=== PATIENT | female | born 1955 ===

== ENCOUNTER 2018-05-23 08:12 | Day surgery (SDC) | payer OTHER ==
[2018-04-26 10:38] VITALS: BMI 37.2
[2018-05-23] MEDS ORDERED: Midazolam 2 MG/2 ML VIAL ONE (10:10)
[2018-05-23] MEDS ORDERED: Propofol 10 mg/ml Inj (20 ML) ONE (10:11)
--- NOTE | 2018-05-23 10:45 | PCM.SURG1 ---
Surgeon's Initial Post Op Note - Surgeon's Notes Surgeon: Dr. Dorado Parking Meter Installer: None Type of Anesthesia: General LMA Anesthesia Administered By: Dr. Tobar Pre-Operative Diagnosis: 62 yo Postmenopausal bleeding, cystocel grade III, uterine prolapse gradeII and rectocele grade II Operative Findings: Av uterus , Cystocele grade III, uterine prolapse gradeII, rectocele gradeII Post-Operative Diagnosis: Same as above Operation Performed: Hysteroscopy D and C attempted Myosure Specimen/Specimens Removed: EMC,ECC Estimated Blood Loss: EBL {In ML}: 5 Blood Products Given: N/A Drains Used: No Drains Post-Op Condition: Good Date of Surgery/Procedure: 05/23/18 Time of Surgery/Procedure: 10:46
[2018-05-23 11:58] VITALS: PULSE 63; RESP 15; TEMP 97.7
[2018-05-23 12:06] VITALS: O2SAT 98
[2018-05-23 12:50] VITALS: BP 136/75
--- NOTE | 2018-05-23 21:04 | OP ---
PROCEDURE DATE: 05/23/2018 PREOPERATIVE DIAGNOSES: A 62-year-old female with postmenopausal bleeding, noted to have a cystocele grade 3, uterine prolapse grade 2, and rectocele grade 2. POSTOPERATIVE DIAGNOSES: A 62-year-old female with postmenopausal bleeding, noted to have a cystocele grade 3, uterine prolapse grade 2, and rectocele grade 2. PROCEDURES: Hysteroscopy, dilatation and curettage, and attempted MyoSure. SURGEON: Alice Dorado MD ANESTHESIOLOGIST: Greyson Tobar MD TYPE OF ANESTHESIA: General LMA. FINDINGS: Anteverted uterus of approximately 6 cm, noted to have a cystocele grade 3, a uterine prolapse grade 2, and rectocele grade 2. COMPLICATIONS: None. INPUTS AND OUTPUTS: 500 mL. SPECIMENS: EMC and ECC. DESCRIPTION OF PROCEDURE: The patient was informed of the risk factors, benefits, and alternatives of the procedure. Risk factors included infection, bleeding, damage to the surrounding organs and tissues, complication from anesthesia and possible . After informed consent, she was then taken to the operating room and given anesthesia which was found to be adequate. She was prepped and draped in the normal sterile fashion. A weighted speculum was placed into the vagina. The anterior lip of the cervix was grasped with a single-tooth tenaculum. The uterus was gently sounded to approximately 6 to 7 cm. Upon complete uterine evaluation, a scope was then placed. A complete surveillance of the uterine cavity was then performed. In that particular instance, attempted MyoSure had been unsuccessful. A fractional D and C was then performed. EMC was submitted to pathology together with ECC; excellent hemostasis. Upon completion, all instruments were removed from the vagina. Instrument and lap counts were correct x2. The patient was then taken to the recovery room in stable condition and instructed to follow up in the office in approximately two weeks. Alice Dorado MD
== END 2018-05-23 12:48 | disposition home or self-care (01) ==
LOC: C.SDS 08:12
PROVIDERS: ATTEND Obstetrics & Gynecology
DX: N85.00 Endometrial hyperplasia, unspecified (principal); N95.0 Postmenopausal bleeding; N81.4 Uterovaginal prolapse, unspecified
CPT/HCPCS: 58558; 88305; J1100; J1885; J2250; J2704; J2765; J3010